=== PATIENT | female | born 1945 | race Caucasian/White ===

== ENCOUNTER 2017-06-25 19:15 | Emergency (ER) | payer OTHER ==
--- NOTE | 2017-06-25 19:47 | EDPHY ---
H & P Stated Complaint: concerned about high BP, headache Time Seen by Provider: 06/25/17 19:31 HPI/ROS: CHIEF COMPLAINT: Hypertension HISTORY OF PRESENT ILLNESS: The patient presents to the ED for evaluation of hypertension. The patient had been on hydrochlorothiazide since March. Her PCP recently cut that dose in half to 12.5 mg daily. The patient is noted over the past day that her blood pressure has been in the 180-190 range. The patient has had some vague intermittent symptoms of headache and disequilibrium. The patient has no complaints currently of acute numbness or weakness or dysarthria. The patient does endorse symptoms of a vague mild occasional headache. The patient denies fever, cough or congestion. The patient denies additional acute complaints. REVIEW OF SYSTEMS: A comprehensive 10 point review of systems is otherwise negative aside from elements mentioned in the history of present illness. Source: Patient - Personal History Current Tetanus Diphtheria and Acellular Pertussis (TDAP): Yes Tetanus Vaccine Date: 2012 - Medical/Surgical History Hx Asthma: No Hx Chronic Respiratory Disease: No Hx Diabetes: No Hx Cardiac Disease: Yes Hx Renal Disease: No Hx Cirrhosis: No Hx Alcoholism: No Hx HIV/AIDS: No Hx Splenectomy or Spleen Trauma: No Other PMH: HX: HTN, ULCERATIVE COLITIS - Social History Smoking Status: Never smoked - Physical Exam Exam: General Appearance: Alert, no distress Eyes: Pupils equal and round no pallor or injection ENT, Mouth: Mucous membranes moist Respiratory: There are no retractions, lungs are clear to auscultation Cardiovascular: Regular rate and rhythm Gastrointestinal: Abdomen is soft and nontender, no masses, bowel sounds normal Neurological: A&O, normal motor function, normal sensory exam, normal cranial nerves Skin: Warm and dry, no rashes Musculoskeletal: Neck is supple nontender Extremities: symmetrical, full range of motion Constitutional: Initial Vital Signs Temperature (C) 37.1 C 06/25/17 19:20 Heart Rate 84 06/25/17 19:20 Respiratory Rate 20 06/25/17 19:20 Blood Pressure 173/100 H 06/25/17 19:20 O2 Sat (%) 93 06/25/17 19:20 O2 Delivery Mode Room Air Allergies/Adverse Reactions: ciprofloxacin [From Cipro] Allergy (Intermediate, Verified 06/25/17 19:19) Other-Enter Comments ciprofloxacin HCl [From Cipro] Allergy (Intermediate, Verified 06/25/17 19:19) Other-Enter Comments Home Medications: Medication Instructions Recorded Hydrochlorothiazide [HCTZ (*)] 25 mg PO DAILY #0 tab 08/27/12 amLODIPine BESYLATE [Norvasc 2.5 2.5 mg PO DAILY #30 tab 06/25/17 mg (*)] Medical Decision Making - Diagnostics Imaging Results: Imaging Impressions Head CT 06/25/17 20:37 Impression: 1. No intracranial hemorrhage, mass, or swelling. 2. Mild nonspecific white matter disease throughout the frontal and parietal lobes. Findings discussed with emergency department physician, Clifford Ward MD on June 25, 2017 at 9:46 p.m. Head CTA 06/25/17 20:37 Impression: 1. Normal intracranial arterial circulation. No evidence of embolic disease or aneurysm. 2. Patent venous system. Findings discussed with emergency department physician, Clifford Ward MD on June 25, 2017 at 9:46 p.m. ED Course/Re-evaluation: The patient's blood pressure was noted to be 180/100 at the time of my check. She was given her regular 25 mg dose of hydrochlorothiazide. BP was noted to be 190/100. The patient was given 2.5 mg of Norvasc. Given her constellation of symptoms a noncontrast head CT scan and CT angiogram were obtained to exclude evidence of intracranial hemorrhage, obvious stroke or carotid disease. Fortunately the results of the studies are normal. The patient's EKG demonstrates no evidence of ischemia. The patient will be instructed to resume her regular dose of hydrochlorothiazide 25 mg. She is also given a prescription for 2.5 mg of Norvasc for persistently elevated blood pressure. She is advised to return to the ED for any acute neurologic symptoms, chest pain, difficulty breathing or other concerns. Re-examination at 10:40 p.m.: Blood pressure currently 178/80. Neurologic examination normal. The patient will be advised to follow up with her primary care provider for a recheck this week. Differential Diagnosis: Differential diagnosis considered includes hypertensive emergency, stroke, TIA, vascular disease, arrhythmia, ACS - Data Points Laboratory Results: Laboratory Results 06/25/17 20:08 06/25/17 20:08 06/25/17 06/25/17 06/25/17 20:08 20:08 20:08 WBC RBC Hgb POC Hgb 13.3 gm/dL gm/dL (12.6-16.3) Hct POC Hct 39 % % (38-47) MCV MCH MCHC RDW Plt Count MPV Neut % (Auto) Lymph % (Auto) [place] % (Auto) Eos % (Auto) Baso % (Auto) Nucleat RBC Rel Count Absolute Neuts (auto) Absolute Lymphs (auto) Absolute Monos (auto) Absolute Eos (auto) Absolute Basos (auto) Absolute Nucleated RBC Immature Gran % Immature Gran # PT 12.7 SEC SEC (12.0-15.0) INR 0.96 (0.83-1.16) POC Sodium 141 mEq/L mEq/L (134-144) Sodium 138 mEq/L mEq/L (134-144) POC Potassium 3.2 mEq/L L mEq/L (3.3-5.0) Potassium 3.5 mEq/L mEq/L (3.5-5.2) POC Chloride 106 mEq/L mEq/L (97-110) Chloride 104 mEq/L mEq/L (97-110) Carbon Dioxide 22 mEq/l mEq/l (22-31) Anion Gap 12 mEq/L mEq/L (8-16) POC BUN 17 mg/dL mg/dL (7-23) BUN 18 mg/dL mg/dL (7-23) Creatinine 0.7 mg/dL mg/dL (0.6-1.0) POC Creatinine 0.6 mg/dL mg/dL (0.6-1.0) Estimated GFR > 60 Glucose 105 mg/dL H mg/dL (70-100) POC Glucose 110 mg/dL H mg/dL (70-100) Calcium 10.0 mg/dL mg/dL (8.5-10.4) Troponin I < 0.012 ng/mL ng/mL (0.000-0.034) 06/25/17 20:08 WBC 5.11 10^3/uL 10^3/uL (3.80-9.50) RBC 4.36 10^6/uL 10^6/uL (4.18-5.33) Hgb 13.2 g/dL g/dL (12.6-16.3) POC Hgb Hct 38.8 % % (38.0-47.0) POC Hct MCV 89.0 fL fL (81.5-99.8) MCH 30.3 pg pg (27.9-34.1) MCHC 34.0 g/dL g/dL (32.4-36.7) RDW 13.3 % % (11.5-15.2) Plt Count 279 10^3/uL 10^3/uL (150-400) MPV 9.9 fL fL (8.7-11.7) Neut % (Auto) 59.7 % % (39.3-74.2) Lymph % (Auto) 27.2 % % (15.0-45.0) [place] % (Auto) 9.2 % % (4.5-13.0) Eos % (Auto) 2.7 % % (0.6-7.6) Baso % (Auto) 1.0 % % (0.3-1.7) Nucleat RBC Rel Count 0.0 % % (0.0-0.2) Absolute Neuts (auto) 3.05 10^3/uL 10^3/uL (1.70-6.50) Absolute Lymphs (auto) 1.39 10^3/uL 10^3/uL (1.00-3.00) Absolute Monos (auto) 0.47 10^3/uL 10^3/uL (0.30-0.80) Absolute Eos (auto) 0.14 10^3/uL 10^3/uL (0.03-0.40) Absolute Basos (auto) 0.05 10^3/uL 10^3/uL (0.02-0.10) Absolute Nucleated RBC 0.00 10^3/uL 10^3/uL (0-0.01) Immature Gran % 0.2 % % (0.0-1.1) Immature Gran # 0.01 10^3/uL 10^3/uL (0.00-0.10) PT INR POC Sodium Sodium POC Potassium Potassium POC Chloride Chloride Carbon Dioxide Anion Gap POC BUN BUN Creatinine POC Creatinine Estimated GFR Glucose POC Glucose Calcium Troponin I Medications Given: Discontinued Medications Amlodipine Besylate (Norvasc) 2.5 mg PO EDNOW ONE Stop: 06/25/17 21:46 Last Admin: 06/25/17 22:03 Dose: 2.5 mg Hydrochlorothiazide (Hydrochlorothiazide) 25 mg PO EDNOW ONE Stop: 06/25/17 20:11 Last Admin: 06/25/17 20:35 Dose: 25 mg Point of Care Test Results: 06/25/17 20:08 POC Sodium 141 POC Potassium 3.2 L POC Chloride 106 POC BUN 17 POC Creatinine 0.6 POC Glucose 110 H Departure - Departure Disposition: Home, Routine, Self-Care Clinical Impression: Hypertension Condition: Good Instructions: Hypertension (ED) Additional Instructions: 1. Please resume taking 25 mg of hydrochlorothiazide daily. 2. Begin taking 2.5 mg of Norvasc once daily for persistent hypertension. Do not take Norvasc if you have a systolic blood pressure less than 130 3. Please return to the ED immediately for any acute headache, numbness, weakness, acute loss of balance or other concerns. 4. Please follow-up with your primary care provider for a blood pressure recheck this. Referrals: Molly Still MD [Primary Care Provider] - As per Instructions
[2017-06-25] MEDS ORDERED: HYDROCHLOROTHIAZIDE 25 MG TAB PO ONE (20:10)
[2017-06-25 20:42] LABS: % IMMATURE GRANULYOCYTES 0.2 % (0.0-1.1); ABSOLUTE IMMATURE GRANULOCYTES 0.01 10^3/uL (0.00-0.10); ADD DIFF? NO; ADD MORPH? NO; ADD SCAN? NO; ATYPICAL LYMPHOCYTE FLAG 0 (0-99); FRAGMENT RBC FLAG 0 (0-99); HEMATOCRIT 38.8 % (38.0-47.0); HEMOGLOBIN 13.2 g/dL (12.6-16.3); LEFT SHIFT FLG 0 (0-99); LIPEMIA HEMOLYSIS FLAG 90 (0-99); MEAN CELL HEMOGLOBIN 30.3 pg (27.9-34.1); MEAN PLATELET VOLUME 9.9 fL (8.7-11.7); PLATELET CLUMPS FLAG 10 (0-99); PLATELET COUNT 279 10^3/uL (150-400); RED BLOOD CELL COUNT 4.36 10^6/uL (4.18-5.33); RED CELL DISTRIBUTION WIDTH 13.3 % (11.5-15.2)
[2017-06-25] MEDS ORDERED: IOPAMIDOL (ISOVUE 370) 100 ML BTL IV ONE (20:42)
--- NOTE | 2017-06-25 20:49 | CPEKG ---
Heart Rate: 67 RR Interval: 896 P-R Interval: 144 QRSD Interval: 74 QT Interval: 412 QTC Interval: 435 P [place]: 11 QRS [place]: 36 T Wave [place]: 18 EKG Severity - BORDERLINE ECG - EKG Impression: SINUS RHYTHM Electronically Signed By: Clifford Ward 25-Jun-2017 22:53:14
[2017-06-25 20:51] LABS: INR 0.96 (0.83-1.16); PROTIME(PATIENT) 12.7 SEC (12.0-15.0)
[2017-06-25 20:53] LABS: ANION GAP 12 mEq/L (8-16); CARBON DIOXIDE 22 mEq/l (22-31); CHLORIDE 104 mEq/L (97-110); CREATININE 0.7 mg/dL (0.6-1.0); GLOMERULAR FILTRATION RATE > 60; GLUCOSE 105 mg/dL (70-100); POTASSIUM 3.5 mEq/L (3.5-5.2); SODIUM 138 mEq/L (134-144)
[2017-06-25 21:05] LABS: TROPONIN I < 0.012 ng/mL (0.000-0.034)
[2017-06-25] MEDS ORDERED: amLODIPine BESYLATE 5 MG TAB PO ONE (21:45)
[2017-06-25] MEDS ORDERED: amLODIPine BESYLATE 5 MG TAB ONE (22:03)
[2017-06-25 22:55] VITALS: BP 187/88; RESP 16; O2SAT 91
[2017-06-25 23:20] VITALS: PULSE 61; TEMP 97.9
== END 2017-06-25 23:21 | disposition home or self-care (01) ==
DX: I10 Essential (primary) hypertension (principal)
CPT/HCPCS: 70450; 70496; 93005; 99285; Q9967; 82947-QW

== ENCOUNTER 2017-07-05 11:51 | Emergency (ER) | payer OTHER ==
--- NOTE | 2017-07-05 12:24 | EDPHY ---
HPI/HX/ROS/PE/MDM Narrative: CHIEF COMPLAINT: Chest pressure HPI: The patient is a 72 y/o female complaining of 15 minutes of chest pressure around 10:30, 2 hours ago. Her PCP has been changing her hypertension medication since March of this year. She was seen at this ED 10 days ago for hypertension. She has not taken the medication that she was prescribed. The chest pressure today radiated to her back and jaw. A co-worker also noticed the patient looked gallegos when her symptoms began. Her chest pressure resolved on her way to the ED, but she began to feel shaky in the ED waiting room. She is unaware of any cardiac illness. Denies weakness, paresthesias, abdominal pain, shortness of breath or other pertinent symptoms. REVIEW OF SYSTEMS: Aside from elements discussed in the HPI, a comprehensive 10-point review of systems was reviewed and is negative. PMH: Hypertension, ulcerative colitis SOCIAL HISTORY: Lives in [place], retired, PHYSICAL EXAM: General:Patient is alert, in no acute distress. ENT:Eyes are normal to inspection. ENT inspection normal. Neck: Normal inspection. Full range of motion. Respiratory:No respiratory distress. Breath sounds normal bilaterally. Cardiovascular: Regular rate and rhythm. Strong peripheral pulses. Normal cap refill. Abdomen:The abdomen is nontender to palpation. There are no peritoneal signs. There are normal bowel sounds. Back: Normal to inspection. No tenderness to palpation. Skin: Normal color. No rash. Warm and dry. Extremities: Normal appearance. Full range of motion. Neuro: Oriented x3. Normal motor function. Normal sensory function. Portions of this note were transcribed by an ED scribe. I personally performed the history, physical exam, and medical decision making; and confirm the accuracy of the information in the transcribed note. ED Course: The patient is a 72 y/o female presenting with chest pressure that radiated to her back and jaw, 2 hours ago. Her symptoms have stopped, but she is currently feeling shaky and hot. The patients physical exam is normal. 1240: EKG was ordered and interpreted by myself. Please see [employer] system for official reading. 1241: Patients chest x-ray negative. 1340: Reassessed patient and discussed imaging results. She would like to go home at this time and would not like any further work up. I have provided her a referral to Dr. Agudelo, footwear sales coordinator. Return precautions discussed; patient is comfortable with this plan. MDM: This is an elderly patient with no history of cardiovascular disease other than hypertension who presents with an episode of chest pain. Her workup in the ER including EKG and troponin is negative. I am concerned that her symptoms are somewhat atypical and concerning for possible acute coronary syndrome although there is no objective evidence of this on our labs. I offered her admission to the hospital for monitoring and cardiology consultation but she declines. She prefers to follow up with Cardiology as an outpatient and we have given a referral. I strongly encouraged her to return to the emergency department immediately for any recurrence of chest pain or other symptoms. - Data Points Imaging Results: Imaging Impressions Chest X-Ray 07/05/17 12:41 Impression: Clear lungs. No acute process. Imaging: I viewed and interpreted images myself Laboratory Results: Laboratory Results 07/05/17 12:40 07/05/17 12:40 07/05/17 07/05/17 12:40 12:40 WBC 4.80 10^3/uL 10^3/uL (3.80-9.50) RBC 4.30 10^6/uL 10^6/uL (4.18-5.33) Hgb 13.0 g/dL g/dL (12.6-16.3) Hct 38.3 % % (38.0-47.0) MCV 89.1 fL fL (81.5-99.8) MCH 30.2 pg pg (27.9-34.1) MCHC 33.9 g/dL g/dL (32.4-36.7) RDW 13.5 % % (11.5-15.2) Plt Count 265 10^3/uL 10^3/uL (150-400) MPV 9.7 fL fL (8.7-11.7) Neut % (Auto) 60.8 % % (39.3-74.2) Lymph % (Auto) 24.6 % % (15.0-45.0) [place] % (Auto) 10.0 % % (4.5-13.0) Eos % (Auto) 3.3 % % (0.6-7.6) Baso % (Auto) 1.3 % % (0.3-1.7) Nucleat RBC Rel Count 0.0 % % (0.0-0.2) Absolute Neuts (auto) 2.92 10^3/uL 10^3/uL (1.70-6.50) Absolute Lymphs (auto) 1.18 10^3/uL 10^3/uL (1.00-3.00) Absolute Monos (auto) 0.48 10^3/uL 10^3/uL (0.30-0.80) Absolute Eos (auto) 0.16 10^3/uL 10^3/uL (0.03-0.40) Absolute Basos (auto) 0.06 10^3/uL 10^3/uL (0.02-0.10) Absolute Nucleated RBC 0.00 10^3/uL 10^3/uL (0-0.01) Immature Gran % 0.0 % % (0.0-1.1) Immature Gran # 0.00 10^3/uL 10^3/uL (0.00-0.10) Sodium 139 mEq/L mEq/L (134-144) Potassium 3.8 mEq/L mEq/L (3.5-5.2) Chloride 103 mEq/L mEq/L (97-110) Carbon Dioxide 25 mEq/l mEq/l (22-31) Anion Gap 11 mEq/L mEq/L (8-16) BUN 17 mg/dL mg/dL (7-23) Creatinine 0.6 mg/dL mg/dL (0.6-1.0) Estimated GFR > 60 Glucose 106 mg/dL H mg/dL (70-100) Calcium 10.2 mg/dL mg/dL (8.5-10.4) Troponin I < 0.012 ng/mL ng/mL (0.000-0.034) General Time Seen by Provider: 07/05/17 12:22 Initial Vital Signs: Initial Vital Signs Temperature (C) 37.4 C 07/05/17 11:57 Heart Rate 80 07/05/17 11:57 Respiratory Rate 18 07/05/17 11:57 Blood Pressure 148/89 H 07/05/17 11:57 O2 Sat (%) 92 07/05/17 11:57 O2 Delivery Mode Room Air Allergies/Adverse Reactions: ciprofloxacin [From Cipro] Allergy (Intermediate, Verified 07/05/17 11:56) Other-Enter Comments ciprofloxacin HCl [From Cipro] Allergy (Intermediate, Verified 07/05/17 11:56) Other-Enter Comments Home Medications: Medication Instructions Recorded Hydrochlorothiazide [HCTZ (*)] 25 mg PO DAILY #0 tab 08/27/12 amLODIPine BESYLATE [Norvasc 2.5 2.5 mg PO DAILY #30 tab 06/25/17 mg (*)] Departure - Departure Disposition: Home, Routine, Self-Care Clinical Impression: Chest pain Qualifiers: Chest pain type: other chest pain Qualified Code(s): R07.89 - Other chest pain Condition: Good Instructions: Chest Pain (ED) Additional Instructions: Based upon the testing done in the Emergency Department today we see no evidence of a heart attack. We are unable to fully exclude coronary artery disease based upon the testing available in the Emergency Department. For this reason, we would like you to be seen by cardiology for consideration of additional testing within the next 3 days. Please contact the footwear sales coordinator you have been referred to schedule this appointment as soon as possible. Their offices are typically open from 8:30am- 5pm M-F. Please return to the Emergency Department immediately for any recurrent chest pain, difficulty breathing or other concerns. Referrals: Molly Still MD [Primary Care Provider] - As per Instructions Matt Agudelo MD [Medical Doctor] - As per Instructions Report Scribed for: Elmer Esquivel Report Scribed by: Ingrid Tom Date of Report: 07/05/17 Time of Report: 12:24
--- NOTE | 2017-07-05 12:41 | CPEKG ---
Heart Rate: 72 RR Interval: 833 P-R Interval: 148 QRSD Interval: 76 QT Interval: 400 QTC Interval: 438 P [place]: 4 QRS [place]: 18 T Wave [place]: 20 EKG Severity - BORDERLINE ECG - EKG Impression: SINUS RHYTHM EKG Impression: BORDERLINE R WAVE PROGRESSION, ANTERIOR LEADS Electronically Signed By: Matt Agudelo 06-Jul-2017 08:14:06
[2017-07-05 12:51] LABS: ADD DIFF? NO; ADD MORPH? NO; ADD SCAN? NO; ATYPICAL LYMPHOCYTE FLAG 20 (0-99); FRAGMENT RBC FLAG 0 (0-99); HEMATOCRIT 38.3 % (38.0-47.0); LEFT SHIFT FLG 0 (0-99); LIPEMIA HEMOLYSIS FLAG 90 (0-99); MEAN CELL HEMOGLOBIN 30.2 pg (27.9-34.1); MEAN CELL HEMOGLOBIN CONCENTR. 33.9 g/dL (32.4-36.7); MEAN CELL VOLUME 89.1 fL (81.5-99.8); MEAN PLATELET VOLUME 9.7 fL (8.7-11.7); PLATELET CLUMPS FLAG 10 (0-99); PLATELET COUNT 265 10^3/uL (150-400); RED CELL DISTRIBUTION WIDTH 13.5 % (11.5-15.2)
[2017-07-05 13:11] LABS: ANION GAP 11 mEq/L (8-16); CALCIUM 10.2 mg/dL (8.5-10.4); CARBON DIOXIDE 25 mEq/l (22-31); CHLORIDE 103 mEq/L (97-110); CREATININE 0.6 mg/dL (0.6-1.0); GLOMERULAR FILTRATION RATE > 60; GLUCOSE 106 mg/dL (70-100); POTASSIUM 3.8 mEq/L (3.5-5.2); SODIUM 139 mEq/L (134-144)
[2017-07-05 13:19] LABS: TROPONIN I < 0.012 ng/mL (0.000-0.034)
[2017-07-05 14:17] VITALS: BP 157/83; PULSE 70; RESP 14; TEMP 97.7; O2SAT 100
== END 2017-07-05 14:28 | disposition home or self-care (01) ==
DX: R07.89 Other chest pain (principal); I10 Essential (primary) hypertension